=== PATIENT | female | born 1970 | race African-American/Black ===

== ENCOUNTER → 2020-10-21 16:28 | Outpatient (CLI) | payer BC, SELFPAY ==
--- NOTE | ~2020-10-21 | MR_ITS ---
EXAMINATION: MR shoulder RT wo con DATE: 10/21/2020 17:43 INDICATION: Right shoulder pain TECHNIQUE: Magnetic resonance imaging (MRI) of the right shoulder was performed without intravenous c ontrast. Sequences included axial PD-weighted FS FSE, coronal oblique PD-weighted FS FSE, coronal obl ique T2-weighted FS FSE, sagittal PD-weighted FS FSE, and sagittal T1-weighted SE. COMPARISON: None. FINDINGS: Coracoacromial arch: The acromion undersurface is curved in morphology (type II). Small anterior subacromial spur at the a cromial insertion of the normal coracoacromial ligament. Acromioclavicular joint is normal. Rotator cuff: Moderate supraspinatus and infraspinatus tendinopathy without discrete tear most prominent at the con joined portion of the tendons where there is underlying cystic change greater tuberosity footplate. T he teres minor and subscapularis tendons are normal. Normal rotator cuff muscle bulk and signal. Biceps tendon, glenoid labrum and glenohumeral cartilage: Long head of the biceps tendon is normal. Glenoid labrum is normal. Glenohumeral cartilage is normal. Fluid: Physiologic amount of fluid in the glenohumeral joint and biceps tendon sheath. No loose osteochondra l bodies. Small amount of fluid in the subacromial/subdeltoid bursa consistent with mild bursitis. Bones: Bone alignment is normal. No fracture or pathologic marrow replacing process. There is some marrow ed kathy extending inferiorly from the region of cystic change at the greater tuberosity. IMPRESSION: 1. Moderate supraspinatus and infraspinatus tendinopathy without discrete tear. 2. Mild subacromial/subdeltoid bursitis. Reviewed, dictated and finalized at location [facility]
== END ==
PROVIDERS: Visit Provider Orthopaedic Surgery
DX: M75.51 Bursitis of right shoulder (principal)
CPT/HCPCS: 73221

== ENCOUNTER 2024-08-30 09:17 | Outpatient (CLI) | payer BC, SELFPAY ==
--- NOTE | ~2024-08-30 | XR_ITS ---
Left Knee Technique: AP, lateral, and sunrise views were obtained. Clinical History: Osteoarthritis Findings: No fracture or dislocation is seen. Osseous alignment is anatomic. Joint spaces are preserv ed without degenerative or erosive change. Soft tissues are unremarkable. No joint effusion is seen. Impression: Unremarkable left knee radiographs. Reviewed, dictated and finalized at location . Impression: Unremarkable left knee radiographs.
== END 2024-08-30 09:18 | disposition home or self-care (01) ==
PROVIDERS: Visit Provider Orthopaedic Surgery
DX: M17.12 Unilateral primary osteoarthritis, left knee (principal)
CPT/HCPCS: 73564